=== PATIENT | female | born 1985 | race Two or more races ===

== ENCOUNTER 2023-04-26 16:30 | Emergency (ER) | payer BC ==
[~2023-04-26] VITALS: Ht 162.6 cm; Wt 68.0 kg
[2023-04-26 16:50] VITALS: BP 114/60; TEMP 98.2
[2023-04-26] MEDS ORDERED: IBUPROFEN 400 MG TABLET ONE (17:47)
[2023-04-26] MEDS ORDERED: IBUPROFEN 400 MG TABLET PO ONE (18:00)
[2023-04-26 18:40] LABS: PREGNANCY TEST URINE QUAL NEGATIVE (NEGATIVE)
[2023-04-26] MEDS ORDERED: IBUP-1957 PO (19:11)
[2023-04-26 19:19] VITALS: O2SAT 100
== END 2023-04-26 19:21 | disposition home or self-care (01) ==
LOC: ER 16:40
DX: B34.9 Viral infection, unspecified (principal); Z79.899 Other long term (current) drug therapy; Z20.822 Contact with and (suspected) exposure to COVID-19
CPT/HCPCS: 99283; 87426; 87804 ×2; 84703; C9803